=== PATIENT | male | born 1985 | race Caucasian/White ===

== ENCOUNTER 2016-11-06 09:26 | Emergency (ER) | payer OTHER ==
[~2016-11-06] VITALS: Ht 167.6 cm; Wt 95.0 kg
[2016-11-06 09:28] VITALS: BP 127/79; PULSE 90; RESP 24; TEMP 98.5; O2SAT 98
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
[2016-11-06] MEDS ORDERED: DIPHTH/TETANUS/ACEL PERTUSSIS (BOOSTER) 0.5 ML VIAL/PFS IM ONE (10:00)
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
[2016-11-06] MEDS ORDERED: oxyCODONE/ACETAMINOPHEN 5 MG/325 MG TAB PO ONE (12:30)
[2016-11-06] MEDS ORDERED: PERC5TAB12 PO (12:38)
[2016-11-06] MEDS ORDERED: IBUP-232 PO (12:38)
== END 2016-11-06 12:55 | disposition home or self-care (01) ==
LOC: NEPE 09:26
DX: S22.42XA Multiple fractures of ribs, left side, initial encounter for closed fracture (principal); S42.002A Fracture of unspecified part of left clavicle, initial encounter for closed fracture; S00.81XA Abrasion of other part of head, initial encounter; S40.812A Abrasion of left upper arm, initial encounter; S80.212A Abrasion, left knee, initial encounter; S80.211A Abrasion, right knee, initial encounter; S60.311A Abrasion of right thumb, initial encounter; Z23 Encounter for immunization; V29.3XXA Motorcycle rider (driver) (passenger) injured in unspecified nontraffic accident, initial encounter
CPT/HCPCS: 70450; 71020; 72125; 73000; 73030; 73130; 74000; 90471; 90715; 94150